=== PATIENT | male | born 1960 | race Caucasian/White ===

== ENCOUNTER 2016-11-02 06:03 | Day surgery (SDC) | payer OTHER ==
[2016-11-02] MEDS ORDERED: LACTATED RINGERS 1,000 ML ONE (06:46)
[2016-11-02] MEDS ORDERED: fentaNYL CITRATE INJ 50 MCG/ML AMP ONE (08:56)
[2016-11-02] MEDS ORDERED: MIDAZOLAM INJ 5 MG/5 ML VIAL ONE (08:56)
--- NOTE | 2016-11-02 09:36 | OP ---
DATE OF PROCEDURE: 11/02/16 PREPROCEDURE DIAGNOSIS: 1. Colon cancer screening. POSTPROCEDURE DIAGNOSIS: 1. Single, small rectal polyp. PROCEDURE: 1. Colonoscopy to the cecum. 2. Polypectomy. SURGEON: Jhonathan Santiago MD. ANESTHESIA: Monitored anesthesia care. FINDINGS: With the patient under adequate sedation, digital exam showed normal anal canal with no rectal masses with normal anal sphincter tone. Prostate is normal in size. The colon preparation was good. Examination of the colon was done to good advantage. All areas were well visualized. There was a single polyp present in the rectum, 6 to 7 mm in size, benign appearing, easily removed with snare wire with good hemostasis. The polyp was retrieved for pathologic exam. The rectum was otherwise unremarkable. Sigmoid colon was normal with no evidence of any diverticulosis. The sigmoid, descending colon, splenic flexure, transverse colon, ascending colon, and cecum were all normal. The ileocecal and appendix opening were identified. Careful examination of both flexures showed no abnormality. Reexamination of the colon on scope withdrawal showed no new additional findings. Total scope withdrawal time was 6 -1/2 minutes. IMPRESSION: Single small polyp present in the rectum, removed, benign. RECOMMENDATION: Recommend surveillance somewhere between 5 to 10 years. #[id number] cc: MD Jhonathan Moore MD [facility]
[2016-11-02 09:46] VITALS: BP 95/61; TEMP 97.1; O2SAT 98
[2016-11-02] MEDS ORDERED: LIDOCAINE 1% 10 ML VIAL INJ ONE (12:00)
[2016-11-02] MEDS ORDERED: PROPOFOL 200 MG/20 ML VIAL IV ONE (12:00)
== END 2016-11-02 09:48 | disposition home or self-care (01) ==
LOC: AMB 06:03
PROVIDERS: ATTEND Internal Medicine Gastroenterology
DX: Z12.11 Encounter for screening for malignant neoplasm of colon (principal); K62.1 Rectal polyp; I10 Essential (primary) hypertension; K21.9 Gastro-esophageal reflux disease without esophagitis; Z83.71 Family history of colonic polyps; Z79.899 Other long term (current) drug therapy
CPT/HCPCS: 00810; 45385; J2250; J3010; J3490; J7120

== ENCOUNTER → 2020-05-05 | Outpatient (CLI) | payer BC | LOC: GMAE 10:59 | PROVIDERS: ATTEND Family Medicine | DX: R10.13 Epigastric pain (principal) ==